=== PATIENT | female | born 1990 | race Caucasian/White ===

== ENCOUNTER → 2024-09-06 | Outpatient (CLI) | payer SELFPAY ==
[2024-09-06 12:49] LABS: Absolute Lymphocyte Count 2.22 X10^3/uL (0.83-4.51); Absolute Neutrophil Count 5.2 X10^3/uL (2.0-7.7); Basophil# 0.07 X10^3/uL; Basophil% 0.8 % (0-1); Eosinophil# 0.34 X10^3/uL; Eosinophils% 4.1 % (0-5); Hematocrit 41.1 % (37-47); Hemoglobin 12.9 g/dL (12.0-15.0); Lymphocyte # 2.22 X10^3/ul (0.83-4.51); Lymphocyte % 26.7 % (19-41); Mean Corp Hgb Conc 31.4 g/dL (32-36); Mean Corpuscular Hgb 28.2 pg (27.0-32.0); Mean Corpuscular Volume 89.7 fL (81-99); Mean Platelet Vol. 10.7 fl (6.2-12.0); Monocyte# 0.43 X10^3/uL; Monocyte% 5.2 % (0-10); NRBC Flagged by Analyzer 0 % (0-5); Neutrophil % 62.7 % (47-70); Platelet Count 274 K/mm3 (150-450); RBC Distribution Width CV 13.2 % (11.6-14.6); RBC Distribution Width SD 43.4 fl (35.1-43.9); Red Blood Count 4.58 M/mm3 (4.2-5.4); White Blood Count 8.3 K/mm3 (4.4-11.0)
[2024-09-06 13:11] LABS: Erythrocyte Sedimentation Rate 13 mm/hr (0-30)
[2024-09-06 13:29] LABS: ALB/GLOB Ratio 1.1 RATIO (0.9-2.4); AST(SGOT) 12 U/L (15-37); Alanine Aminotransfer ALT/SGPT 21 U/L (13-56); Albumin, Serum 3.7 g/dL (3.2-5.0); Alkaline Phosphatase 67 U/L (45-117); Anion Gap 4 (5-15); BUN 12 mg/dL (7-18); BUN/Creat Ratio 18.1 RATIO (10-20); CRP 3.89 mg/L (0.0-3.0); Calcium,Total 8.9 mg/dL (8.5-10.1); Chloride 108 mmol/L (98-107); Creatinine, Serum 0.66 mg/dL (0.55-1.02); EST Glomerular Filtration Rate 109 mL/min (>60); Est Glom Filt Rate - Afr Amer 132 mL/min (>60); Ferritin 35 ng/mL (8-252); Globulin 3.5 g/dL (2.2-4.2); Glucose 146 mg/dL (74-106); Magnesium 1.9 mg/dL (1.6-2.6); Potassium 4.5 mmol/L (3.5-5.1); Protein, Total 7.2 g/dL (6.4-8.2); Sodium Level 138 mmol/L (136-145)
[2024-09-06 13:42] LABS: HIV - WCH Non-Reactive (Nonreactive); Hepatitis C Antibody Non-Reactive (Nonreactive); Syphilis Antibodies Non-reactive; Vitamin B12 336 pg/mL (211-911); Vitamin D,25 Hydroxy 26.6 ng/mL
[2024-09-07 06:10] LABS: Hepatitis A AB, Total Negative (Negative)
[2024-09-10 15:07] LABS: ANTINUCLEAR ANTIBODIES DIRECT Negative (Negative)
== END | disposition home or self-care (01) ==
LOC: VSLAB 09:56
DX: R53.83 Other fatigue (principal); R23.9 Unspecified skin changes; Z72.51 High risk heterosexual behavior
CPT/HCPCS: 36415; 80053; 82306; 82607; 82728; 83735; 84443; 85025; 85652; 86038; 86140; 86703; 86708; 86780; 86803

== ENCOUNTER 2024-09-10 12:23 | Emergency (ER) | payer MEDICAID, SELFPAY ==
[2024-09-10 12:25] VITALS: BP 126/77; PULSE 90; RESP 18; TEMP 36.6; O2SAT 100; BMI 34.6
--- NOTE | 2024-09-10 13:22 | EDS_ITS ---
HPI History of Present Illness Chief Complaint: Abd Pain PFSH PFSH Home Medications ?Medication ?Instructions ?Recorded ?Last Taken ?Type ondansetron 4 mg disintegrating 4 mg PO Q8H PRN PRN Nausea #10 tabs 09/10/24 Unknown Rx tablet Allergy/AdvReac Type Severity Reaction Status Date / Time hydrocodone Allergy Intermediate Swelling Verified 09/10/24 12:24 Surgical History (Updated 09/10/24 @ 13:59 by Sangita Escudero) Hx of tubal ligation Social History Smoking Status: Current every day smoker tobacco type: cigarettes EXAM Physical Exam Const Vital Signs: 09/10/24 12:25 09/10/24 14:24 09/10/24 15:26 Temperature 97.9 F 98.1 F Temperature Source Oral Pulse Rate 90 77 77 Respiratory Rate 18 18 18 Blood Pressure 126/77 H 119/98 H 100/64 Blood Pressure Mean 93 105 76 Pulse Ox 100 97 97 Oxygen Delivery Method Room Air Room Air MDM MDM MDM Narrative Medical decision making narrative: HISTORY OF PRESENT ILLNESS: 34-year-old female presents abdominal pain. She states she has been having one month of diffuse abdominal pain. No RUQ TTP, no RLQ TTP. No history abdominal surgery. She does note urinary frequency but denies dysuria or hematuria. Notes more frequent bowel movements. Denies travel recent antibiotics. Notes vomiting yesterday but no nausea or vomiting at this time. Denies chest pain or shortness of breath. No she had a tubal ligation. Denies vaginal bleeding or discharge. REVIEW OF SYSTEMS: Pertinent positives: Abdominal pain, urinary frequency Pertinent negatives: Vaginal bleeding, discharge, hematuria, constipation, fever, chest pain, shortness of breath PHYSICAL EXAM: Nursing triage notes reviewed, Vital signs reviewed Constitutional: please see mdm HENT: MMM Eyes: Pupils equal round and reactive to light, Extraocular muscles intact Neck: No stridor, no JVD, full neck ROM Lungs: Clear to auscultation, No wheezing or rales. No increased work of breathing, no conversational dyspnea, no accessory muscle use, no nasal flaring. No respiratory distress noted Heart: Regular rate and rhythm, No murmurs, No rubs and No gallops, 2+ distal pulses (radial, femoral, posterior tibial) in all extremities Abdomen: Soft, there is no tenderness, rigidity, rebound or guarding, no obvious peritoneal signs, no palpable pulsatile abdominal masses, no auscultated abdominal bruit : No CVAT Extremities: No edema Neuro: No focal neurological deficits, cranial nerves II through XII intact, 5/5 strength in all extremities. Intact sensation to light touch in all extremities, 2+ reflexes bilateral patella tendons. Normal gait. No ataxia. Skin: No rash or lesions noted MEDICAL DECISION MAKING: Chief Complaint: Abdominal pain External records reviewed: Reviewed prior labs: CBC from 4 days ago showed no leukocytosis, anemia. CMP showed no evidence of electrolyte disturbances, acute kidney injury, metabolic acidosis endorgan or perfusion or hepatobiliary obstruction Factors affecting care: none Social determinants of health: none History obtained from others: none Consults: none MDM Narrative: The patient was initially hemodynamically stable, afebrile nontoxic-appearing. Abdominal exam was benign not consistent with acute surgical emergency. I considered the following differential diagnosis: Perforation, obstruction, UTI, pyelonephritis, , biliary pathology, pancreatitis The patient's history and clinical exam was not consistent with acute surgical emergency. Her pain is gone for 1 month, her belly exam was benign and her vitals were stable. ALL IMAGES (IF OBTAINED) HAVE BEEN PERSONALLY REVIEWED AND INTERPRETED BY MYSELF. CBC without leukocytosis, severe anemia, no thrombocytopenia. BMP without evidence of significant electrolyte abnormalities, no anion gap, no acute kidney injury. Lipase is wnl indicating no pancreatic inflammation. LFTs show no evidence of hepatobiliary pathology. Urine test is negative Urinalysis shows no evidence of urinary inflammation suggestive of UTI I do not suspect the patient's presentation is secondary to an acute life- limiting etiology in the abdomen as she had no elevation in white count, abdominal exam was benign, and she has been experiencing pain for 1 month. Repeat abdominal exam remained benign. The patient's appropriate discharge home. Will give Zofran for as needed nausea vomiting P will give GI follow-up. The patient and/or family, caregivers express understanding. The patient and/or family, caregivers agrees with the plan. Shared decision making: I will have a discussion with the patient and or visitors regarding risk/benefits of further testing or admission. They will be made aware of of the risk/benefits inherent in this decision they will be given the opportunity to voice understanding. Total critical care time today provided was at least 0 minutes. This excludes s eparately billable procedures. Critical care time (if documented) is secondary to the patient having high probability of clinically significant/life threatening deterioration in the patient's condition which required my urgent intervention. Impression: 1. Abdominal pain 2. Nausea vomiting Dispo: Discharge home This note was generated with [employer] dictation software. It may contain incorrect words, spelling, and punctuation that were not noted in review of the chart prior to signing. Lab Data Labs: Laboratory Results - last 24 hr 09/10/24 09/10/24 13:57 14:05 WBC 6.7 RBC 4.57 Hgb 13.0 Hct 40.5 MCV 88.6 MCH 28.4 MCHC 32.1 RDW Std Deviation 42.5 RDW Coeff of Karlee 13.1 Plt Count 271 MPV 10.3 Immature Gran % (Auto) 0.200 Neut % (Auto) 53.6 Lymph % (Auto) 34.7 [place] % (Auto) 5.9 Eos % (Auto) 4.8 Baso % (Auto) 0.8 Absolute Neuts (auto) 3.6 Absolute Lymphs (auto) 2.31 Nucleated RBC % 0 Sodium 142 Potassium 4.0 Chloride 108 H Carbon Dioxide 30.0 Anion Gap 5 BUN 10 Creatinine 0.69 Estim Creat Clear Calc 128.30 Est GFR (MDRD) Af Amer 127 Est GFR (MDRD) Non-Af 105 BUN/Creatinine Ratio 14.5 Glucose 104 Calcium 9.1 Total Bilirubin 0.30 AST 9 L ALT 17 Alkaline Phosphatase 68 Total Protein 7.1 Albumin 3.8 Globulin 3.3 Albumin/Globulin Ratio 1.2 Lipase 29 Urine Color Straw Urine Clarity Clear Urine pH 8.0 Ur Specific [place] 1.010 Urine Protein Negative Urine Glucose (UA) Normal Urine Ketones Negative Urine Occult Blood Negative Urine Nitrite Negative Urine Bilirubin Negative Urine Urobilinogen Normal Ur Leukocyte Esterase Negative Urine Test Negative Discharge Plan Triage Chief Complaint: Abd Pain ED Provider: Rodri Chen Dx/Rx/DC Orders Instructions: ED Abdominal Pain Unkn Cause Fem Prescriptions: New ondansetron 4 mg tablet,disintegrating 4 mg PO Q8H PRN PRN (Reason: Nausea) Qty: 10 0RF Primary Care Provider: Danica Jimenez Referrals: Bhupinder,DO Sebas [Med Staff - Active Staff] - Ekaterina Rashid [Non-Staff] - Activity Restrictions/Additional Instructions: Thank you for trusting us with your care today! Please take Tylenol (2 pills, 650 mg), ibuprofen (2 pills, 400 mg) every 6 hours as needed for pain and fever control. Please take Zofran as needed for nausea and vomiting Please return to the emergency department if your symptoms change or worsen. Please follow with gastroenterology for further outpatient evaluation and management. Print Language: Maori Disposition Disposition: Home, Self Care Discharge Date/Time: 09/10/24 15:27
--- NOTE | 2024-09-10 13:32 | EKG12_ITS ---
Test Reason : Blood Pressure : / mmHG Vent. Rate : 076 BPM Atrial Rate : 076 BPM P-R Int : 148 ms QRS Dur : 086 ms QT Int : 372 ms P-R-T Axes : 041 033 028 degrees QTc Int : 418 ms Normal sinus rhythm Normal ECG Confirmed by Vu Ceballos ([id number]), photo editor TONEY BURRELL ([id number]) on 09/11/2024 8:27:11 AM Referred By: Rodri Chen Confirmed By:Vu Ceballos
[2024-09-10] MEDS: Acetaminophen 325 MG Tablet PO (13:54)
[2024-09-10] MEDS: Ondansetron ODT 4 MG Tablet PO (13:54)
[2024-09-10 14:14] LABS: Absolute Lymphocyte Count 2.31 X10^3/uL (0.83-4.51); Absolute Neutrophil Count 3.6 X10^3/uL (2.0-7.7); Basophil# 0.05 X10^3/uL; Basophil% 0.8 % (0-1); Eosinophil# 0.32 X10^3/uL; Eosinophils% 4.8 % (0-5); Hematocrit 40.5 % (37-47); Lymphocyte # 2.31 X10^3/ul (0.83-4.51); Lymphocyte % 34.7 % (19-41); Mean Corp Hgb Conc 32.1 g/dL (32-36); Mean Corpuscular Hgb 28.4 pg (27.0-32.0); Mean Corpuscular Volume 88.6 fL (81-99); Mean Platelet Vol. 10.3 fl (6.2-12.0); Monocyte# 0.39 X10^3/uL; Monocyte% 5.9 % (0-10); NRBC Flagged by Analyzer 0 % (0-5); Neutrophil # 3.57 X10^3/uL (2.7-7.7); Neutrophil % 53.6 % (47-70); Platelet Count 271 K/mm3 (150-450); RBC Distribution Width CV 13.1 % (11.6-14.6); RBC Distribution Width SD 42.5 fl (35.1-43.9); Red Blood Count 4.57 M/mm3 (4.2-5.4); White Blood Count 6.7 K/mm3 (4.4-11.0)
[2024-09-10 14:17] LABS: Color, Urine Straw (Yellow); Glucose, Dipstick Normal (Normal); Ketone-Dipstick Negative (Negative); Leukocyte Esterase-Dipstick Negative /ul (Negative); Nitrite-Dipstick Negative (Negative); Occult Blood-Urine Negative /ul (Negative); Protein-Dipstick Negative (Negative); Urine Bilirubin Dipstick Negative (Negative); Urine Clarity Clear (Clear); Urine Urobilinogen Normal (Normal)
[2024-09-10 14:19] LABS: Internal QC Validated? YES +Cl - CLEAR BKGD; Pregnancy, Urine Negative Negative
[2024-09-10 14:24] VITALS: BP 119/98; PULSE 77; RESP 18; O2SAT 97
[2024-09-10 14:26] LABS: ALB/GLOB Ratio 1.2 RATIO (0.9-2.4); AST(SGOT) 9 U/L (15-37); Alanine Aminotransfer ALT/SGPT 17 U/L (13-56); Albumin, Serum 3.8 g/dL (3.2-5.0); Alkaline Phosphatase 68 U/L (45-117); Anion Gap 5 (5-15); BUN 10 mg/dL (7-18); BUN/Creat Ratio 14.5 RATIO (10-20); Calcium,Total 9.1 mg/dL (8.5-10.1); Chloride 108 mmol/L (98-107); Creatinine, Serum 0.69 mg/dL (0.55-1.02); EST Glomerular Filtration Rate 105 mL/min (>60); Est Glom Filt Rate - Afr Amer 127 mL/min (>60); Globulin 3.3 g/dL (2.2-4.2); Glucose 104 mg/dL (74-106); Lipase 29 U/L (13-75); Protein, Total 7.1 g/dL (6.4-8.2); Sodium Level 142 mmol/L (136-145)
[2024-09-10 15:26] VITALS: BP 100/64; PULSE 77; RESP 18; TEMP 36.7; O2SAT 97
== END 2024-09-10 15:27 | disposition home or self-care (01) ==
PROVIDERS: Emergency Provider Emergency Medicine; Referring Provider Emergency Medicine; Visit Provider Emergency Medicine
DX: R10.9 Unspecified abdominal pain (principal); R35.0 Frequency of micturition; R11.2 Nausea with vomiting, unspecified; F17.210 Nicotine dependence, cigarettes, uncomplicated
CPT/HCPCS: 80053; 81002; 81025; 83690; 85025; 93005; 99283; A4216

== ENCOUNTER 2024-09-28 14:35 | Emergency (ER) | payer MEDICAID, SELFPAY ==
[2024-09-28 14:36] VITALS: BP 128/82; PULSE 100; RESP 18; TEMP 36.6; O2SAT 99; BMI 38.8
--- NOTE | 2024-09-28 14:55 | RAD_ITS ---
STUDY: X-RAY - LEFT ANKLE REASON FOR EXAM: Female, 34 years old. Fall TECHNIQUE: 3 view(s) of the ankle. COMPARISON: None. FINDINGS: Normal visualized distal tibia and fibula. Normal medial and lateral malleoli. Normal tibiotalar articulation and ankle mortise. Normal visualized talus and calcaneus. The visualized subtalar, talonavicular, calcaneocuboid and tarsal articulations are normal. The soft tissue structures are unremarkable. RAD/Ankle min 3 Views IMPRESSION: Normal x-ray examination of the ankle. Electronically Signed: Jacob Hendrickson MD at 15:07 EDT ,
--- NOTE | 2024-09-28 14:55 | RAD_ITS ---
STUDY: X-RAY - LEFT FOOT CLINICAL: Female, 34 years old. Pain following a fall. TECHNIQUE: 3 view(s) of the foot. COMPARISON: None. FINDINGS: Normal talus, calcaneus, and tarsal bones. Normal visualized subtalar, talonavicular, calcaneocuboid, tarsal and tarsometatarsal articulations. Normal metatarsi. Normal metatarsophalangeal joint of the great toe. Normal tibial and fibular sesamoid bones. Normal interphalangeal joint of the great toe. Normal phalanges of the great toe. Normal second through fifth metatarsophalangeal joints. Normal interphalangeal joints and phalanges of the lesser toes. The soft tissue structures are unremarkable. RAD/Foot min 3 Views IMPRESSION: Normal x-ray examination of the foot. Electronically Signed: Jacob Hendrickson MD at 15:07 EDT ,
--- NOTE | 2024-09-28 16:43 | EX.ED.DYSGE1 ---
HPI <KANDY Hamilton - Last Filed: 09/28/24 16:50> History of Present Illness Chief Complaint: Lower Extremity Injury Narrative Narrative: Patient is a 34-year-old female with no significant medical history presents to the emergency department after falling down some stairs while leaving yoga. Per the patient, she was reading while she was going down some steps, when she missed a couple rolling her left foot and ankle. Patient was able to get up however she is here for evaluation. Most of the pain is on the lateral aspect of her foot and ankle. Denies any head or neck injury. PFSH <KANDY Hamilton - Last Filed: 09/28/24 16:50> [facility] Home Medications ?Medication ?Instructions ?Recorded ?Last Taken ?Type ondansetron 4 mg disintegrating 4 mg PO Q8H PRN PRN Nausea #10 tabs 09/10/24 Unknown Rx tablet Allergy/AdvReac Type Severity Reaction Status Date / Time hydrocodone Allergy Intermediate Swelling Verified 09/28/24 14:36 Surgical History Hx of tubal ligation Social History Smoking Status: Current every day smoker tobacco type: cigarettes ROS <KANDY Hamilton - Last Filed: 09/28/24 16:50> ROS ED ROS Narrative Constitutional: Negative for fever, chills, weight loss, weakness Eyes: Negative for vision loss, vision change, double vision ENT: Negative for any sore throat, ear pain, congestion Cardiovascular: Negative for any chest pain, tightness, palpitations Respiratory: Negative for any cough, sputum production, hemoptysis, dyspnea, dyspnea on exertion, orthopnea Gastrointestinal: Negative for any abdominal pain, nausea, vomiting, diarrhea, constipation, blood in stool, blood in vomit : Negative for any urinary frequency, dysuria, retention, blood in urine Muscle skeletal: Negative for any neck pain, back pain. Positive for left foot pain, left ankle pain Neurological: Negative for any headache, syncope, dizziness Skin: Negative for any rashes, itching, abrasions, lacerations Psychiatric: Negative for any depression, anxiety, stress, suicidal ideation, homicidal ideation Hematologic: Negative for any excessive bruising, easy bleeding EXAM <KANDY Hamilton - Last Filed: 09/28/24 16:50> Physical Exam Narrative Exam Narrative: Vital signs reviewed. Extremities: Patient does have some ecchymosis just below the lateral malleolus, some pain along the fifth metatarsal. +2 pedal pulse. Able to dorsiflex, plantarflex against resistance. Neuro: Cranial nerves II through XII intact, no focal neurological deficits. Skin: Clean dry and intact with no rash, purpura, petechiae, vesicles or pustules. Backs/flank: No CVA tenderness, no midline spinal tenderness, no deformity. Psych: Normal mood and affect. No SI, HI or acute psychosis. Const Vital Signs: 09/28/24 14:36 Temperature 97.9 F Temperature Source Temporal Pulse Rate 100 Respiratory Rate 18 Blood Pressure 128/82 H Blood Pressure Mean 97 Pulse Ox 99 Oxygen Delivery Method Room Air Positive well nourished and well developed General Appearance ED: well developed <Dr. Scott Mayo DO - Last Filed: 09/28/24 17:11> Physical Exam Const Vital Signs: 09/28/24 14:36 Temperature 97.9 F Temperature Source Temporal Pulse Rate 100 Respiratory Rate 18 Blood Pressure 128/82 H Blood Pressure Mean 97 Pulse Ox 99 Oxygen Delivery Method Room Air MDM <KANDY Hamilton - Last Filed: 09/28/24 16:50> MDM Radiography Diagnostic Testing: Clinical Impression(s) from Imaging Studies Ankle X-Ray 09/28/24 14:55 IMPRESSION: Normal x-ray examination of the ankle. Electronically Signed: Jacob Hendrickson MD at 15:07 EDT , Foot X-Ray 09/28/24 14:55 IMPRESSION: Normal x-ray examination of the foot. Electronically Signed: Jacob Hendrickson MD at 15:07 EDT , Treatment and Re-Evaluation :: Differential diagnosis includes however is not limited to: Fifth metatarsal fracture, ankle fracture, ankle sprain, foot contusion, foot sprain Patient appears generally well, vital signs are stable, patient is nontoxic-appearing. Presenting to the emergency department after mechanical fall earlier today, injuring her left foot and ankle. X-rays of the left foot and ankle Interpreted by the ER physician shows normal examination of the left ankle. No acute fracture. X-ray left foot shows no acute fracture of the foot. At this time, patient placed in an Aircast. Patient will take Tylenol [id number]. Instructed to ice and elevate. She is happy the plan of care, all questions answered, stable for discharge. <Dr. Scott Mayo, DO - Last Filed: 09/28/24 17:11> MDM Radiography Diagnostic Testing: Clinical Impression(s) from Imaging Studies Ankle X-Ray 09/28/24 14:55 IMPRESSION: Normal x-ray examination of the ankle. Electronically Signed: Jacob Hendrickson MD at 15:07 EDT , Foot X-Ray 09/28/24 14:55 IMPRESSION: Normal x-ray examination of the foot. Electronically Signed: Jacob Hendrickson MD at 15:07 EDT , Treatment and Re-Evaluation :: Differential diagnosis includes however is not limited to: Fifth metatarsal fracture, ankle fracture, ankle sprain, foot contusion, foot sprain Patient appears generally well, vital signs are stable, patient is nontoxic-appearing. Presenting to the emergency department after mechanical fall earlier today, injuring her left foot and ankle. X-rays of the left foot and ankle Interpreted by the ER physician shows normal examination of the left ankle. No acute fracture. X-ray left foot shows no acute fracture of the foot. At this time, patient placed in an Aircast. Patient will take Tylenol [id number]. Instructed to ice and elevate. She is happy the plan of care, all questions answered, stable for discharge. I have personally performed a face to face assessment of the patient and have reviewed the CHANELLE Note. I performed a substantive portion of the visit including all aspects of the following. My rosen findings include: History is 34-year-old female fell down the stairs while leaving yoga class today. She notes pain over the lateral proximal dorsum of the foot and lateral ankle. Exam is mild swelling over the ATF. Mild distal fibular tenderness to palpation. No fifth metatarsal pain. No proximal fibular pain. Neurovascularly intact Medical Decison Making my independent interpretation of the plain films of the left foot and left ankle is no acute fracture. Patient will be placed in a air splint. Would recommend ice ibuprofen. Follow-up 10 to 14 days if not improved return if worsening or concerns Discharge Plan Triage Chief Complaint: Lower Extremity Injury ED Midlevel Provider: Ajay Larson ED Provider: Scott Mayo Dx/Rx/DC Orders Clinical Impression: Fall, Contusion of foot, Ankle contusion Instructions: Bruises (Contusions), ED Foot Contusion Prescriptions: No Action ondansetron 4 mg tablet,disintegrating 4 mg PO Q8H PRN PRN (Reason: Nausea) Qty: 10 0RF Primary Care Provider: Ekaterina Rashid Referrals: Ekaterina Rashid [Primary Care Provider] - Activity Restrictions/Additional Instructions: Please follow-up outpatient, continue to ice and elevate. Use Tylenol. Print Language: Syriac Disposition Disposition: Home, Self Care Discharge Date/Time: 09/28/24 17:10
[2024-09-28] MEDS: Acetaminophen 500 MG Tablet 1000 MG PO (17:04)
== END 2024-09-28 17:10 | disposition home or self-care (01) ==
LOC: ED 17:05
PROVIDERS: Emergency Provider Emergency Medicine; Referring Provider Emergency Medicine; Visit Provider Emergency Medicine
DX: S90.02XA Contusion of left ankle, initial encounter (principal); S90.32XA Contusion of left foot, initial encounter; W10.9XXA Fall (on) (from) unspecified stairs and steps, initial encounter; F17.210 Nicotine dependence, cigarettes, uncomplicated
CPT/HCPCS: 73610; 73630; 99283

== ENCOUNTER → 2024-10-24 | Outpatient (CLI) | payer MEDICAID, SELFPAY ==
[2024-10-24 12:50] LABS: Absolute Lymphocyte Count 1.53 X10^3/uL (0.83-4.51); Absolute Neutrophil Count 4.5 X10^3/uL (2.0-7.7); Basophil# 0.05 X10^3/uL; Basophil% 0.7 % (0-1); Eosinophil# 0.24 X10^3/uL; Eosinophils% 3.5 % (0-5); Hematocrit 38.5 % (37-47); Hemoglobin 12.4 g/dL (12.0-15.0); Lymphocyte # 1.53 X10^3/ul (0.83-4.51); Lymphocyte % 22.6 % (19-41); Mean Corp Hgb Conc 32.2 g/dL (32-36); Mean Corpuscular Hgb 28.7 pg (27.0-32.0); Mean Corpuscular Volume 89.1 fL (81-99); Mean Platelet Vol. 10.1 fl (6.2-12.0); Monocyte# 0.43 X10^3/uL; Monocyte% 6.4 % (0-10); NRBC Flagged by Analyzer 0 % (0-5); Neutrophil % 66.5 % (47-70); Platelet Count 284 K/mm3 (150-450); RBC Distribution Width CV 13.3 % (11.6-14.6); RBC Distribution Width SD 43.7 fl (35.1-43.9); Red Blood Count 4.32 M/mm3 (4.2-5.4); White Blood Count 6.8 K/mm3 (4.4-11.0)
[2024-10-24 13:25] LABS: Estradiol 45.6 pg/mL; Follicle Stimulating Hormone 5.9 mIU/mL; Luteinizing Hormone 6.1 mIU/mL
[2024-10-24 14:34] LABS: ALB/GLOB Ratio 1.3 RATIO (0.9-2.4); AST(SGOT) 15 U/L (15-37); Alanine Aminotransfer ALT/SGPT 29 U/L (13-56); Albumin, Serum 4.1 g/dL (3.2-5.0); Alkaline Phosphatase 79 U/L (45-117); Anion Gap 6 (5-15); BUN 15 mg/dL (7-18); BUN/Creat Ratio 22.4 RATIO (10-20); Calcium,Total 9.1 mg/dL (8.5-10.1); Chloride 107 mmol/L (98-107); Creatinine, Serum 0.67 mg/dL (0.55-1.02); EST Glomerular Filtration Rate 108 mL/min (>60); Est Glom Filt Rate - Afr Amer 131 mL/min (>60); Globulin 3.2 g/dL (2.2-4.2); Glucose 110 mg/dL (74-106); Lipase 24 U/L (13-75); Potassium 4.1 mmol/L (3.5-5.1); Protein, Total 7.3 g/dL (6.4-8.2); Sodium Level 140 mmol/L (136-145)
[2024-11-06 07:08] LABS: HPV APTIMA, High Risk Negative (Negative)
== END | disposition home or self-care (01) ==
PROVIDERS: Student in an Organized Health Care Education/Training Program; PCP Family Medicine; Visit Provider Family Medicine
DX: Z01.419 Encounter for gynecological examination (general) (routine) without abnormal findings (principal); N64.52 Nipple discharge
CPT/HCPCS: 36415; 80053; 82670; 83001; 83002; 83690; 85025; 87624; 88175; G0145

== ENCOUNTER → 2024-10-29 | Outpatient (CLI) | payer MEDICAID, SELFPAY ==
--- NOTE | 2024-10-29 08:34 | US_ITS ---
STUDY: ABDOMINAL ULTRASOUND - RIGHT UPPER QUADRANT REASON FOR VISIT: Female, 34 years old abdominal pain TECHNIQUE: Ultrasound evaluation of the right upper quadrant was performed with real-time and static morgan-scale imaging. TECHNICAL QUALITY: Adequate. COMPARISON: None. FINDINGS: Liver: The liver measures 18.7 cm. There is diffusely increased echogenicity of the liver. The bile ducts are within normal limits. There is hepatic color flow. The direction of portal flow is hepatopetal. There is no demonstrated mass lesion. Gallbladder: Normal distended gallbladder. The gallbladder wall measures 2.2 mm. There is a negative sonographic Linda''s sign. There is no pericholecystic fluid. There are no gallstones. Common Bile Duct (C.B.D.): The common bile duct measures 4.2 mm. Pancreas: Normal size of the head, body and tail of the pancreas. There is normal echogenicity of the pancreas. There is no demonstrated pancreatic mass or cyst. Right Kidney: Normal size of the right kidney. The right kidney measures 13.4 x 4.7 x 5.6 cm. Normal renal cortex. The right cortex measures 1.9 cm. There is no demonstrated renal mass or cyst. There is no right hydronephrosis. US/Gallbladder IMPRESSION: Large diffusely fatty infiltrated liver. No evidence for gallstones or acute cholecystitis. Electronically Signed: Seth Barrios MD at 20:49 EST ,
== END | disposition home or self-care (01) ==
PROVIDERS: PCP Family Medicine; Referring Provider Student in an Organized Health Care Education/Training Program; Visit Provider Student in an Organized Health Care Education/Training Program
DX: R10.9 Unspecified abdominal pain (principal)
CPT/HCPCS: 76705

== ENCOUNTER → 2024-11-08 | Outpatient (CLI) | payer MEDICAID, SELFPAY ==
--- NOTE | 2024-11-08 09:10 | BI_ITS ---
MAMMOGRAPHY - BILATERAL DIAGNOSTIC REASON FOR EXAM: Female, 34 years old. Bilateral nipple discharge and pain. PERTINENT HISTORY: Non-contributory. TECHNIQUE: Digital bilateral breast adam (3D mammographic acquisition) in the CC and MLO projections. 2-D mediolateral oblique (MLO) and craniocaudad (CC) views of both breasts were obtained. CAD: Full Field Digital Mammography with Computer Added Detection was performed. COMPARISON: None. Baseline examination. FINDINGS: Breast Composition: The breasts are heterogeneously dense, which may obscure small masses. There are no dominant masses or suspicious calcifications. No other significant abnormalities are identified. BI/DIAG MAMM W/CAD, BILAT IMPRESSION: Negative diagnostic mammogram. With the patient''s history of bilateral nipple pain and discharge, correlation with ultrasound recommended. ASSESSMENT CATEGORY: BIRADS Category 0: Incomplete. Need additional imaging evaluation. A letter regarding these results will be sent to the patient by the facility within 30 days. Approximately 10% of breast cancers are not detected by mammography. A normal mammogram should not delay biopsy of a clinically suspicious abnormality. Electronically Signed: Jacob Hendrickson MD at 10:06 [facility] ,
--- NOTE | 2024-11-08 09:11 | US_ITS ---
STUDY: ULTRASOUND BREAST - RIGHT REASON FOR EXAM: Female, 34 years old. Nipple discharge in the right breast. TECHNIQUE: Axial and longitudinal images of the RIGHT breast were performed with a high resolution ultrasound transducer. # OF IMAGES: 30 COMPARISON: Comparison is made with prior mammogram done earlier today. FINDINGS: RIGHT Breast: The retroareolar region of the right breast was examined with ultrasound. No sonographic abnormality is seen. IMPRESSION: No sonographic abnormality is seen. ASSESSMENT CATEGORY: BIRADS Category 1: Negative. A letter regarding these results will be sent to the patient by the facility within 30 days. Electronically Signed: Jacob Hendrickson MD at 13:57 EST , STUDY: ULTRASOUND BREAST - LEFT REASON FOR EXAM: Female, 34 years old. Nipple discharge in the left breast. TECHNIQUE: Axial and longitudinal images of the LEFT breast were performed with a high resolution ultrasound transducer. # OF IMAGES: 30 COMPARISON: Comparison is made with prior mammogram done earlier today. FINDINGS: LEFT Breast: The retroareolar region of the left breast was examined with ultrasound. No sonographic abnormality is seen. US/Breast Limited Unilateral IMPRESSION: No sonographic abnormality is seen. ASSESSMENT CATEGORY: BIRADS Category 1: Negative. A letter regarding these results will be sent to the patient by the facility within 30 days. Electronically Signed: Jacob Hendrickson MD at 13:58 EST ,
== END | disposition home or self-care (01) ==
LOC: OPBI 09:07
PROVIDERS: PCP Family Medicine; Referring Provider Family Medicine; Visit Provider Family Medicine
DX: N64.52 Nipple discharge (principal)
CPT/HCPCS: 77062; 76642; 77066; G0279